=== PATIENT | male | born 1950 | race Caucasian/White ===

== ENCOUNTER 2019-09-21 20:47 | Inpatient (IN) | payer MEDICARE, BC ==
[~2019-09-21] VITALS: Ht 162.6 cm; Wt 83.5 kg
[2019-09-21] MEDS ORDERED: DOCU-141 PO (21:38)
[2019-09-21] MEDS ORDERED: FINA1TAB PO (21:38)
[2019-09-21] MEDS ORDERED: OXYB10TA30 PO (21:38)
[2019-09-21] MEDS ORDERED: METH-406 PO (21:38)
[2019-09-21] MEDS ORDERED: GABA300C PO (21:38)
[2019-09-21] MEDS ORDERED: TRAM50TA PO (21:38)
[2019-09-21] MEDS ORDERED: HYDR-3974 PO (21:38)
[2019-09-21] MEDS ORDERED: ENAL20TA70 PO (21:38)
[2019-09-21] MEDS ORDERED: KRIL1CAP PO (21:38)
[2019-09-21] MEDS ORDERED: DIAZ5TAB PO (21:38)
[2019-09-21] MEDS ORDERED: MONT10TA22 PO (21:38)
[2019-09-21] MEDS ORDERED: OMEG100037 PO (21:38)
[2019-09-21] MEDS ORDERED: FELO5TAB12 PO (21:38)
[2019-09-21] MEDS ORDERED: HYDR12.517 PO (21:38)
[2019-09-21] MEDS ORDERED: CARB200T PO (21:38)
[2019-09-21] MEDS ORDERED: DIAZEPAM 5 MG TABLET PO PRN (22:15)
[2019-09-21 22:35] VITALS: BP 137/88
[2019-09-22] MEDS ORDERED: METHOCARBAMOL 500 MG TABLET ONE (05:18)
[2019-09-22 05:30] VITALS: BP 132/78
[2019-09-22] MEDS: METHOCARBAMOL 750 MG TABLET PO SCH ×3 (05:36→21:07)
[2019-09-22 07:30] VITALS: BP 121/77
[2019-09-22] MEDS: CARBAMAZEPINE 200 MG TABLET PO SCH ×2 (08:40→16:41)
[2019-09-22] MEDS: GABAPENTIN 300 MG CAPSULE PO SCH ×3 (08:40→16:41)
[2019-09-22] MEDS: OMEGA-3 FATTY ACIDS/FISH OIL CAPSULE PO SCH (08:40)
[2019-09-22] MEDS: HYDROCHLOROTHIAZIDE 12.5 MG CAPSULE PO SCH (08:40)
[2019-09-22] MEDS: OXYBUTYNIN XL 5 MG TABSR PO SCH (08:40)
[2019-09-22] MEDS: FELODIPINE 2.5 MG TAB.SR.24H PO SCH (08:41)
[2019-09-22] MEDS: DOCUSATE SODIUM 100 MG CAPSULE PO SCH ×2 (08:41→16:41)
[2019-09-22] MEDS: HYDROCODONE/APAP 5-325MG TABLET PO PRN ×3 (08:42→16:42)
[2019-09-22] MEDS ORDERED: FINASTERIDE 1 MG PO SCH (09:00)
[2019-09-22] MEDS ORDERED: ENALAPRIL 10 MG TABLET PO ONE (09:00)
[2019-09-22] MEDS ORDERED: ENALAPRIL 10 MG TABLET PO SCH (09:00)
[2019-09-22 16:00] VITALS: BP 136/76
[2019-09-22 20:04] VITALS: BP 137/58
[2019-09-22 20:08] VITALS: BP 121/73
[2019-09-22] MEDS: MONTELUKAST SODIUM 10 MG TABLET PO SCH (21:07)
[2019-09-22] MEDS: ENALAPRIL 10 MG TABLET PO SCH (21:07)
[2019-09-23] MEDS: HYDROCODONE/APAP 5-325MG TABLET PO PRN ×4 (01:47→20:39)
[2019-09-23 05:19] VITALS: BP 116/66
[2019-09-23] MEDS: METHOCARBAMOL 750 MG TABLET PO SCH ×3 (05:47→21:56)
[2019-09-23 07:52] VITALS: BP 128/51
[2019-09-23] MEDS: OMEGA-3 FATTY ACIDS/FISH OIL CAPSULE PO SCH (09:23)
[2019-09-23] MEDS: HYDROCHLOROTHIAZIDE 12.5 MG CAPSULE PO SCH (09:23)
[2019-09-23] MEDS: CARBAMAZEPINE 200 MG TABLET PO SCH ×2 (09:23→16:59)
[2019-09-23] MEDS: GABAPENTIN 300 MG CAPSULE PO SCH ×3 (09:23→16:59)
[2019-09-23] MEDS: DOCUSATE SODIUM 100 MG CAPSULE PO SCH ×2 (09:24→16:59)
[2019-09-23] MEDS: OXYBUTYNIN XL 5 MG TABSR PO SCH (09:24)
[2019-09-23] MEDS: FELODIPINE 2.5 MG TAB.SR.24H PO SCH (09:31)
[2019-09-23] MEDS: ENALAPRIL 10 MG TABLET PO SCH ×2 (09:37→20:31)
[2019-09-23 16:05] VITALS: BP 133/78
[2019-09-23 20:16] VITALS: BP 132/63
[2019-09-23] MEDS: MONTELUKAST SODIUM 10 MG TABLET PO SCH (20:30)
[2019-09-23] MEDS ORDERED: MUPIROCIN 2% OINT 22 GM TUBE NS SCH (21:00)
[2019-09-24 04:18] VITALS: BP 137/65
[2019-09-24] MEDS: HYDROCODONE/APAP 5-325MG TABLET PO PRN ×2 (05:02→15:42)
[2019-09-24] MEDS: METHOCARBAMOL 750 MG TABLET PO SCH ×3 (05:18→22:10)
[2019-09-24 08:00] VITALS: BP 120/60
[2019-09-24] MEDS: GABAPENTIN 300 MG CAPSULE PO SCH ×3 (09:08→16:01)
[2019-09-24] MEDS: DOCUSATE SODIUM 100 MG CAPSULE PO SCH ×2 (09:08→16:02)
[2019-09-24] MEDS: OMEGA-3 FATTY ACIDS/FISH OIL CAPSULE PO SCH (09:08)
[2019-09-24] MEDS: HYDROCHLOROTHIAZIDE 12.5 MG CAPSULE PO SCH (09:08)
[2019-09-24] MEDS: OXYBUTYNIN XL 5 MG TABSR PO SCH (09:09)
[2019-09-24] MEDS: CARBAMAZEPINE 200 MG TABLET PO SCH ×2 (09:10→16:01)
[2019-09-24] MEDS: FELODIPINE 2.5 MG TAB.SR.24H PO SCH (09:13)
[2019-09-24] MEDS: ENALAPRIL 10 MG TABLET PO SCH ×2 (09:15→20:46)
[2019-09-24] MEDS: TRAMADOL HCL 50 MG TABLET PO PRN ×2 (09:16→20:47)
[2019-09-24 16:29] VITALS: BP 130/68
[2019-09-24 20:36] VITALS: BP 123/74
[2019-09-24] MEDS: MONTELUKAST SODIUM 10 MG TABLET PO SCH (20:46)
[2019-09-25] MEDS: HYDROCODONE/APAP 5-325MG TABLET PO PRN ×3 (00:25→21:12)
[2019-09-25 04:58] VITALS: BP 116/69
[2019-09-25] MEDS: METHOCARBAMOL 750 MG TABLET PO SCH ×3 (06:34→21:11)
[2019-09-25 06:46] LABS: BASOPHILS % (AUTO) 0.3 % (0.0-2.0); EOSINOPHILS % (AUTO) 0.5 % (0.0-7.0); HEMATOCRIT 36.4 % (36.7-47.1); HEMOGLOBIN 12.3 g/dL (12.5-16.3); LYMPHOCYTES % (AUTO) 22.3 % (20.5-51.5); MEAN CORPUSCULAR HEMOGLOBIN 33.4 uug (23.8-33.4); MEAN CORPUSCULAR HGB CONC 34 g/dL (32.5-36.3); MEAN CORPUSCULAR VOLUME 98.5 fL (73.0-96.2); MONOCYTES # (AUTO) 0.6 K/uL (2.0-10.0); MONOCYTES % (AUTO) 13.4 % (0.0-11.0); NEUTROPHILS # (AUTO) 2.9 K/uL (1.8-8.9); NEUTROPHILS % (AUTO) 63.5 % (38.5-71.5); PLATELET COUNT (AUTO) 291 K/uL (152-348); WHITE BLOOD COUNT (AUTO) 4.6 K/uL (3.6-10.2)
[2019-09-25 07:18] LABS: THYROID STIMULATING HORMONE 1.947 mIU/mL (0.358-3.740)
[2019-09-25 07:25] LABS: BILIRUBIN,TOTAL 0.3 mg/dL (0.2-1.0); CREATININE 0.9 mg/dL (0.6-1.3); PHOSPHOROUS 3.9 mg/dL (2.5-4.9); TOTAL PROTEIN, SERUM 6.3 g/dL (6.4-8.2)
[2019-09-25] MEDS: OXYBUTYNIN XL 5 MG TABSR PO SCH (08:34)
[2019-09-25] MEDS: CARBAMAZEPINE 200 MG TABLET PO SCH ×2 (08:39→17:02)
[2019-09-25] MEDS: ENALAPRIL 10 MG TABLET PO SCH ×2 (08:39→21:11)
[2019-09-25] MEDS: DOCUSATE SODIUM 100 MG CAPSULE PO SCH ×2 (08:40→17:02)
[2019-09-25] MEDS: GABAPENTIN 300 MG CAPSULE PO SCH ×3 (08:40→17:02)
[2019-09-25] MEDS: OMEGA-3 FATTY ACIDS/FISH OIL CAPSULE PO SCH (08:40)
[2019-09-25] MEDS: HYDROCHLOROTHIAZIDE 12.5 MG CAPSULE PO SCH (08:40)
[2019-09-25] MEDS: FELODIPINE 2.5 MG TAB.SR.24H PO SCH (08:41)
[2019-09-25] MEDS: TRAMADOL HCL 50 MG TABLET PO PRN (08:42)
[2019-09-25 16:00] VITALS: BP 119/57
[2019-09-25 20:21] VITALS: BP 141/65
[2019-09-25] MEDS: MONTELUKAST SODIUM 10 MG TABLET PO SCH (21:09)
[2019-09-26] MEDS: TRAMADOL HCL 50 MG TABLET PO PRN ×2 (02:53→16:51)
[2019-09-26 04:21] VITALS: BP 114/71
[2019-09-26] MEDS: METHOCARBAMOL 750 MG TABLET PO SCH ×3 (05:59→21:16)
[2019-09-26] MEDS: HYDROCODONE/APAP 5-325MG TABLET PO PRN ×2 (06:10→20:37)
[2019-09-26] MEDS: HYDROCHLOROTHIAZIDE 12.5 MG CAPSULE PO SCH (08:45)
[2019-09-26] MEDS: OMEGA-3 FATTY ACIDS/FISH OIL CAPSULE PO SCH (08:45)
[2019-09-26] MEDS: ENALAPRIL 10 MG TABLET PO SCH ×2 (08:45→20:36)
[2019-09-26] MEDS: GABAPENTIN 300 MG CAPSULE PO SCH ×3 (08:45→16:47)
[2019-09-26] MEDS: DOCUSATE SODIUM 100 MG CAPSULE PO SCH ×2 (08:45→16:47)
[2019-09-26] MEDS: OXYBUTYNIN XL 5 MG TABSR PO SCH (08:46)
[2019-09-26] MEDS: FELODIPINE 2.5 MG TAB.SR.24H PO SCH (08:46)
[2019-09-26] MEDS: CARBAMAZEPINE 200 MG TABLET PO SCH ×2 (08:46→16:47)
[2019-09-26 09:32] VITALS: BP 134/77
[2019-09-26] MEDS: CYANOCOBALAMIN 1000 MCG/ML VIAL IM SCH (10:57)
[2019-09-26 15:56] VITALS: BP 122/70
[2019-09-26 20:25] VITALS: BP 115/68
[2019-09-26] MEDS: MONTELUKAST SODIUM 10 MG TABLET PO SCH (20:36)
[2019-09-27] MEDS: HYDROCODONE/APAP 5-325MG TABLET PO PRN ×3 (03:00→21:14)
[2019-09-27 04:50] VITALS: BP 105/63
[2019-09-27] MEDS: METHOCARBAMOL 750 MG TABLET PO SCH ×3 (05:40→21:11)
[2019-09-27] MEDS: CYANOCOBALAMIN 1000 MCG/ML VIAL IM SCH (08:36)
[2019-09-27] MEDS: OXYBUTYNIN XL 5 MG TABSR PO SCH (08:37)
[2019-09-27] MEDS: ENALAPRIL 10 MG TABLET PO SCH ×2 (08:37→21:09)
[2019-09-27] MEDS: DOCUSATE SODIUM 100 MG CAPSULE PO SCH ×2 (08:37→16:57)
[2019-09-27] MEDS: HYDROCHLOROTHIAZIDE 12.5 MG CAPSULE PO SCH (08:37)
[2019-09-27] MEDS: CARBAMAZEPINE 200 MG TABLET PO SCH ×2 (08:37→16:57)
[2019-09-27] MEDS: GABAPENTIN 300 MG CAPSULE PO SCH ×3 (08:37→16:57)
[2019-09-27] MEDS: OMEGA-3 FATTY ACIDS/FISH OIL CAPSULE PO SCH (08:37)
[2019-09-27] MEDS: FELODIPINE 2.5 MG TAB.SR.24H PO SCH (08:42)
[2019-09-27 08:54] VITALS: BP 123/70
[2019-09-27 16:16] VITALS: BP 115/57
[2019-09-27] MEDS: TRAMADOL HCL 50 MG TABLET PO PRN (17:08)
[2019-09-27 20:20] VITALS: BP 129/71
[2019-09-27] MEDS: MONTELUKAST SODIUM 10 MG TABLET PO SCH (21:09)
[2019-09-28] MEDS: METHOCARBAMOL 750 MG TABLET PO SCH ×3 (05:36→21:00)
[2019-09-28 05:46] VITALS: BP 135/76
[2019-09-28] MEDS ORDERED: hydrALAZINE HCL 50 MG TABLET ONE (05:46)
[2019-09-28 08:00] VITALS: BP 119/54
[2019-09-28] MEDS: FELODIPINE 2.5 MG TAB.SR.24H PO SCH (09:07)
[2019-09-28] MEDS: OXYBUTYNIN XL 5 MG TABSR PO SCH (09:11)
[2019-09-28] MEDS: ENALAPRIL 10 MG TABLET PO SCH ×2 (09:11→20:46)
[2019-09-28] MEDS: GABAPENTIN 300 MG CAPSULE PO SCH ×3 (09:12→17:15)
[2019-09-28] MEDS: CARBAMAZEPINE 200 MG TABLET PO SCH ×2 (09:12→15:36)
[2019-09-28] MEDS: OMEGA-3 FATTY ACIDS/FISH OIL CAPSULE PO SCH (09:13)
[2019-09-28] MEDS: CYANOCOBALAMIN 1000 MCG/ML VIAL IM SCH (09:14)
[2019-09-28] MEDS: HYDROCHLOROTHIAZIDE 12.5 MG CAPSULE PO SCH (09:14)
[2019-09-28] MEDS: DOCUSATE SODIUM 100 MG CAPSULE PO SCH ×2 (09:14→15:35)
[2019-09-28] MEDS: HYDROCODONE/APAP 5-325MG TABLET PO PRN ×2 (10:10→15:35)
[2019-09-28 17:01] VITALS: BP 124/60
[2019-09-28 20:26] VITALS: BP 113/59
[2019-09-28] MEDS: TRAMADOL HCL 50 MG TABLET PO PRN (20:41)
[2019-09-28] MEDS: MONTELUKAST SODIUM 10 MG TABLET PO SCH (20:41)
[2019-09-29 05:19] VITALS: BP 119/79
[2019-09-29] MEDS: METHOCARBAMOL 750 MG TABLET PO SCH ×3 (05:26→21:05)
[2019-09-29 08:00] VITALS: BP 115/73
[2019-09-29] MEDS: OMEGA-3 FATTY ACIDS/FISH OIL CAPSULE PO SCH (08:23)
[2019-09-29] MEDS: DOCUSATE SODIUM 100 MG CAPSULE PO SCH ×2 (08:24→16:33)
[2019-09-29] MEDS: HYDROCHLOROTHIAZIDE 12.5 MG CAPSULE PO SCH (08:24)
[2019-09-29] MEDS: OXYBUTYNIN XL 5 MG TABSR PO SCH (08:24)
[2019-09-29] MEDS: ENALAPRIL 10 MG TABLET PO SCH ×2 (08:25→21:11)
[2019-09-29] MEDS: GABAPENTIN 300 MG CAPSULE PO SCH ×3 (08:25→16:33)
[2019-09-29] MEDS: HYDROCODONE/APAP 5-325MG TABLET PO PRN (08:25)
[2019-09-29] MEDS: CARBAMAZEPINE 200 MG TABLET PO SCH ×2 (08:25→16:33)
[2019-09-29] MEDS: FELODIPINE 2.5 MG TAB.SR.24H PO SCH (08:26)
[2019-09-29] MEDS: CYANOCOBALAMIN 1000 MCG/ML VIAL IM SCH (08:39)
[2019-09-29] MEDS ORDERED: CYANOCOBALAMIN 1000 MCG/ML VIAL IM SCH (11:30)
[2019-09-29 16:05] VITALS: BP 115/63
[2019-09-29 20:01] VITALS: BP 131/69
[2019-09-29] MEDS: TRAMADOL HCL 50 MG TABLET PO PRN (21:04)
[2019-09-29] MEDS: MONTELUKAST SODIUM 10 MG TABLET PO SCH (21:05)
[2019-09-30 04:36] VITALS: BP 116/70
[2019-09-30] MEDS: HYDROCODONE/APAP 5-325MG TABLET PO PRN ×2 (04:52→11:10)
[2019-09-30] MEDS: METHOCARBAMOL 750 MG TABLET PO SCH ×3 (06:09→22:12)
[2019-09-30] MEDS: DOCUSATE SODIUM 100 MG CAPSULE PO SCH ×2 (08:34→16:15)
[2019-09-30] MEDS: OMEGA-3 FATTY ACIDS/FISH OIL CAPSULE PO SCH (08:34)
[2019-09-30] MEDS: OXYBUTYNIN XL 5 MG TABSR PO SCH (08:34)
[2019-09-30] MEDS: CYANOCOBALAMIN 1000 MCG/ML VIAL IM SCH (08:34)
[2019-09-30] MEDS: GABAPENTIN 300 MG CAPSULE PO SCH ×3 (08:35→16:15)
[2019-09-30] MEDS: CARBAMAZEPINE 200 MG TABLET PO SCH ×2 (08:35→16:15)
[2019-09-30] MEDS: HYDROCHLOROTHIAZIDE 12.5 MG CAPSULE PO SCH (08:46)
[2019-09-30] MEDS: ENALAPRIL 10 MG TABLET PO SCH ×2 (08:47→21:07)
[2019-09-30] MEDS: FELODIPINE 2.5 MG TAB.SR.24H PO SCH (08:47)
[2019-09-30 08:56] VITALS: BP 101/71
[2019-09-30] MEDS: MONTELUKAST SODIUM 10 MG TABLET PO SCH (21:07)
[2019-09-30 21:25] VITALS: BP 110/59
[2019-10-01] MEDS: HYDROCODONE/APAP 5-325MG TABLET PO PRN ×2 (00:28→09:01)
[2019-10-01] MEDS: METHOCARBAMOL 750 MG TABLET PO SCH ×2 (05:38→13:52)
[2019-10-01 05:41] VITALS: BP 115/69
[2019-10-01 05:49] VITALS: BP 115/69
[2019-10-01 08:36] VITALS: BP 138/67
[2019-10-01] MEDS: OMEGA-3 FATTY ACIDS/FISH OIL CAPSULE PO SCH (08:45)
[2019-10-01] MEDS: CARBAMAZEPINE 200 MG TABLET PO SCH (08:53)
[2019-10-01] MEDS: GABAPENTIN 300 MG CAPSULE PO SCH ×2 (08:53→13:38)
[2019-10-01] MEDS: HYDROCHLOROTHIAZIDE 12.5 MG CAPSULE PO SCH (08:53)
[2019-10-01] MEDS: OXYBUTYNIN XL 5 MG TABSR PO SCH (08:53)
[2019-10-01] MEDS: DOCUSATE SODIUM 100 MG CAPSULE PO SCH (08:53)
[2019-10-01] MEDS: FELODIPINE 2.5 MG TAB.SR.24H PO SCH (08:54)
[2019-10-01] MEDS: CYANOCOBALAMIN 1000 MCG/ML VIAL IM SCH (09:00)
[2019-10-01 10:06] VITALS: BP 138/67
[2019-10-01] MEDS: ENALAPRIL 10 MG TABLET PO SCH (10:06)
== END 2019-10-01 13:55 | disposition home health service (06) | DRG 560 ==
PROVIDERS: ADMIT Physical Medicine & Rehabilitation Pain Medicine; ATTEND Physical Medicine & Rehabilitation Pain Medicine
DX: Z47.89 Encounter for other orthopedic aftercare (principal); M47.12 Other spondylosis with myelopathy, cervical region; E03.9 Hypothyroidism, unspecified; G62.9 Polyneuropathy, unspecified; I10 Essential (primary) hypertension; M50.321 Other cervical disc degeneration at C4-C5 level; J44.9 Chronic obstructive pulmonary disease, unspecified; N40.0 Benign prostatic hyperplasia without lower urinary tract symptoms; E53.8 Deficiency of other specified B group vitamins; R26.9 Unspecified abnormalities of gait and mobility; E78.5 Hyperlipidemia, unspecified; G40.909 Epilepsy, unspecified, not intractable, without status epilepticus; G89.29 Other chronic pain; Z68.31 Body mass index [BMI] 31.0-31.9, adult; E66.9 Obesity, unspecified; M17.12 Unilateral primary osteoarthritis, left knee; Z91.040 Latex allergy status; Z88.5 Allergy status to narcotic agent; Z88.8 Allergy status to other drugs, medicaments and biological substances; Z91.048 Other nonmedicinal substance allergy status; M54.16 Radiculopathy, lumbar region
CPT/HCPCS: 36415; 72040; 82652; 83735; 84100; 84443; 85025; J3420